=== PATIENT | female | born 1970 | race Caucasian/White ===

== ENCOUNTER → 2020-10-10 | Day surgery (SDC) | payer OTHER ==
[~2020-10-10] MED LIST: ASPIRIN; BASAGLAR K100 UNIT/1 SC; BIAXIN500 MG PO; ELAVIL25 MG PO; GABAPENTIN600 MG PO; GLYBURIDE-METF1 EACH PO; LEVAQUIN750 MG PO; LISINOPRIL10 MG PO; LYRICA 50MG CAP50 MG PO; METFORMIN HCL500 MG PO; METOPROLOL SUCC50 MG PO; METRONIDAZOLE500 MG PO; NORCO 5-325 TA1 EACH PO; OMEPRAZOLE 20MG20 MG PO; PREGABALIN150 MG PO; SIMVASTATIN40 MG PO; VITAMIN D 3 PO; VITAMIN D325 MC1 PO
[2020-10-10 07:11] LABS: HCG (URINE) SCREEN NEGATIVE (NEGATIVE)
[2020-10-10 07:28] LABS: HCT 47.6 % (37.0-47.0); HGB 15.5 g/dl (12.5-16.0); MCH 28.5 pg (25.0-31.0); MCHC 32.6 g/dL (32.0-36.0); MCV 87.5 fL (78.0-100.0); MPV 10.9 fL (6.0-9.5); RBC 5.44 M/uL (4.20-5.40); RDW 13.5 % (11.5-14.0); WBC 7.4 K/uL (4.0-10.5)
[2020-10-10 08:16] LABS: ALBUMIN 3.3 g/dL (3.4-5.0); BILIRUBIN - TOTAL 0.4 mg/dL (0.2-1.0); BUN/CREAT RATIO (CALC) 17.6 RATIO; CREATININE 0.51 mg/dL (0.51-0.95); GLOBULIN (CALCULATION) 3.6 g/dL; POTASSIUM 3.8 mmol/L (3.5-5.1); TOTAL PROTEIN 6.9 g/dL (6.4-8.2)
== END | disposition home or self-care (01) ==
LOC: FAS 06:47
PROVIDERS: Anesthesiology; Surgery
DX: K59.09 Other constipation (principal); K21.9 Gastro-esophageal reflux disease without esophagitis; J30.9 Allergic rhinitis, unspecified; M54.5 Low back pain; E11.42 Type 2 diabetes mellitus with diabetic polyneuropathy; E78.00 Pure hypercholesterolemia, unspecified; I10 Essential (primary) hypertension; E66.9 Obesity, unspecified; E78.5 Hyperlipidemia, unspecified; E55.9 Vitamin D deficiency, unspecified; F17.210 Nicotine dependence, cigarettes, uncomplicated; Z68.33 Body mass index [BMI] 33.0-33.9, adult; Z79.84 Long term (current) use of oral hypoglycemic drugs; Z79.899 Other long term (current) drug therapy; Z88.0 Allergy status to penicillin
CPT/HCPCS: 36415; 80053; 82962; 84703; J1610; J2704; J7120

== ENCOUNTER 2020-12-01 19:36 | Day surgery (SDCO) | payer OTHER ==
[~2020-12-01 19:36] MED LIST changes: -BIAXIN500 MG PO; -LEVAQUIN750 MG PO; -LISINOPRIL10 MG PO; -LYRICA 50MG CAP50 MG PO; -METFORMIN HCL500 MG PO; -METRONIDAZOLE500 MG PO; -NORCO 5-325 TA1 EACH PO; -VITAMIN D 3 PO
[2020-12-01 20:13] LABS: BASOPHIL 0.5 % (0-2); EOSINOPHIL 1.8 % (0-5); HCT 50.5 % (37.0-47.0); HGB 16.9 g/dl (12.5-16.0); LYMPHOCYTE 36.9 % (15-48); MCHC 33.5 g/dL (32.0-36.0); MCV 86.6 fL (78.0-100.0); MONOCYTE 6.6 % (0-12); NEUTROPHIL 53.9 % (41-80); NRBC 0; PLT 220 K/uL (150-400); RBC 5.83 M/uL (4.20-5.40); RDW 13.4 % (11.5-14.0); WBC 11.9 K/uL (4.0-10.5)
[2020-12-01 20:16] LABS: BILIRUBIN NEGATIVE (NEGATIVE); BLOOD TRACE-INTACT Ery/uL (NEGATIVE); CLARITY CLEAR (CLEAR); COLOR YELLOW (YELLOW); GLUCOSE (U) 3+ mg/dL (NORMAL); LEUKOCYTES NEGATIVE Leu/uL (NEGATIVE); NITRITE NEGATIVE (NEGATIVE); PROTEIN NEGATIVE (NEGATIVE); SPECIFIC GRAVITY 1.015 (1.001-1.030); UROBILINOGEN 0.2 mg/dL (0.2-1.0)
[2020-12-01 20:24] LABS: ALBUMIN 3.7 g/dL (3.4-5.0); BACTERIA TRACE; BILIRUBIN - TOTAL 0.3 mg/dL (0.2-1.0); BUN/CREAT RATIO (CALC) 14.7 RATIO; CREATININE 0.68 mg/dL (0.51-0.95); GLOBULIN (CALCULATION) 4.4 g/dL; POTASSIUM 4.4 mmol/L (3.5-5.1); TOTAL PROTEIN 8.1 g/dL (6.4-8.2)
[2020-12-01] MEDS ORDERED: VITAMIN D 3 PO (23:02)
[2020-12-01] MEDS ORDERED: METFORMIN HCL500 MG PO (23:03)
[2020-12-02 05:48] LABS: BASOPHIL 0.5 % (0-2); EOSINOPHIL 2.6 % (0-5); HCT 43.6 % (37.0-47.0); HGB 14.7 g/dl (12.5-16.0); MCH 29.2 pg (25.0-31.0); MCHC 33.7 g/dL (32.0-36.0); MCV 86.5 fL (78.0-100.0); MONOCYTE 7.6 % (0-12); MPV 10.7 fL (6.0-9.5); NEUTROPHIL 53.2 % (41-80); NRBC 0; PLT 172 K/uL (150-400); RBC 5.04 M/uL (4.20-5.40); RDW 13.6 % (11.5-14.0); WBC 8.2 K/uL (4.0-10.5)
[2020-12-02 06:14] LABS: ALBUMIN 2.9 g/dL (3.4-5.0); BILIRUBIN - TOTAL 0.2 mg/dL (0.2-1.0); BUN/CREAT RATIO (CALC) 16.7 RATIO; CREATININE 0.48 mg/dL (0.51-0.95); GLOBULIN (CALCULATION) 3.8 g/dL; MAGNESIUM 2.1 mg/dL (1.8-2.4); POTASSIUM 3.9 mmol/L (3.5-5.1); TOTAL PROTEIN 6.7 g/dL (6.4-8.2)
--- NOTE | 2020-12-02 09:52 | NUR ---
PT. IS OBS. PLEASE CONSIDER A FULL ADMIT OR D/C. THANKS
[2020-12-02 19:46] LABS: URINE CREATININE 26.22 mg/dL (29.00-226.00)
[2020-12-03 05:33] LABS: BASOPHIL 0.7 % (0-2); EOSINOPHIL 2.9 % (0-5); HCT 43.9 % (37.0-47.0); HGB 14.3 g/dl (12.5-16.0); LYMPHOCYTE 39.3 % (15-48); MCH 28.7 pg (25.0-31.0); MCHC 32.6 g/dL (32.0-36.0); MPV 10.8 fL (6.0-9.5); NEUTROPHIL 48.7 % (41-80); NRBC 0; PLT 151 K/uL (150-400); RBC 4.99 M/uL (4.20-5.40); RDW 13.4 % (11.5-14.0); WBC 5.5 K/uL (4.0-10.5)
[2020-12-03 05:41] LABS: INR 1.07 (0.9-1.2); PROTHROMBIN TIME 13.2 SECONDS (11.4-13.6)
[2020-12-03 05:49] LABS: ALBUMIN 2.9 g/dL (3.4-5.0); BILIRUBIN - TOTAL 0.3 mg/dL (0.2-1.0); BUN/CREAT RATIO (CALC) 13.2 RATIO; CREATININE 0.53 mg/dL (0.51-0.95); GLOBULIN (CALCULATION) 3.6 g/dL; MAGNESIUM 2.1 mg/dL (1.8-2.4); POTASSIUM 3.9 mmol/L (3.5-5.1); TOTAL PROTEIN 6.5 g/dL (6.4-8.2)
== END 2020-12-03 12:42 | disposition home or self-care (01) ==
LOC: FER 19:36 → FMS 21:40
PROVIDERS: Emergency Medicine; Nurse Practitioner; ADMIT Internal Medicine
DX: K85.90 Acute pancreatitis without necrosis or infection, unspecified (principal); E11.40 Type 2 diabetes mellitus with diabetic neuropathy, unspecified; R93.89 Abnormal findings on diagnostic imaging of other specified body structures; E78.5 Hyperlipidemia, unspecified; F17.210 Nicotine dependence, cigarettes, uncomplicated; I10 Essential (primary) hypertension; Z79.4 Long term (current) use of insulin; Z79.82 Long term (current) use of aspirin; Z79.899 Other long term (current) drug therapy; Z88.0 Allergy status to penicillin; Z20.822 Contact with and (suspected) exposure to COVID-19
CPT/HCPCS: 36415; 80053; 80061; 81001; 82150; 82570; 83036; 83690; 83735; 84300; 85025; 85610; 94760; 94762; C9113; G0378; J2270; J2405; J7030; Q9967; U0002

== ENCOUNTER 2021-01-11 08:00 | Day surgery (SDCO) | payer OTHER ==
[~2021-01-11 08:00] MED LIST changes: +METFORMIN HCL500 MG PO; +VITAMIN D 3 PO
[2021-01-11 09:28] LABS: BASOPHIL 0.7 % (0-2); EOSINOPHIL 1.3 % (0-5); HCT 44.2 % (37.0-47.0); HGB 14.6 g/dl (12.5-16.0); LYMPHOCYTE 30.6 % (15-48); MCV 87.7 fL (78.0-100.0); MONOCYTE 5.9 % (0-12); MPV 10.9 fL (6.0-9.5); NEUTROPHIL 61.1 % (41-80); NRBC 0; PLT 168 K/uL (150-400); RBC 5.04 M/uL (4.20-5.40); RDW 13.8 % (11.5-14.0); WBC 8.3 K/uL (4.0-10.5)
[2021-01-11 09:50] LABS: ALBUMIN 3.3 g/dL (3.4-5.0); BILIRUBIN - TOTAL 0.4 mg/dL (0.2-1.0); BUN/CREAT RATIO (CALC) 11.8 RATIO; CREATININE 0.51 mg/dL (0.51-0.95); GLOBULIN (CALCULATION) 3.8 g/dL; POTASSIUM 4.1 mmol/L (3.5-5.1); TOTAL PROTEIN 7.1 g/dL (6.4-8.2)
[2021-01-11 10:02] LABS: BILIRUBIN NEGATIVE (NEGATIVE); BLOOD NEGATIVE Ery/uL (NEGATIVE); CLARITY CLEAR (CLEAR); COLOR YELLOW (YELLOW); GLUCOSE (U) NORMAL (NORMAL); LEUKOCYTES TRACE Leu/uL (NEGATIVE); NITRITE NEGATIVE (NEGATIVE); PROTEIN NEGATIVE (NEGATIVE); SPECIFIC GRAVITY 1.015 (1.001-1.030); UROBILINOGEN 0.2 mg/dL (0.2-1.0)
[2021-01-11 10:21] LABS: BACTERIA 2+
[2021-01-11 15:25] LABS: CORONAVIRUS 2019 SARS-COV-2 NEGATIVE (NEGATIVE); INFLUENZA A NAA NEGATIVE (NEGATIVE)
[2021-01-11] MEDS ORDERED: LISINOPRIL10 MG PO (17:02)
[2021-01-11] MEDS ORDERED: LYRICA 50MG CAP50 MG PO ×2 (17:04→17:08)
[2021-01-11] MEDS ORDERED: BASAGLAR K100 UNIT/1 SC ×2 (17:06→17:07)
[2021-01-12 06:36] LABS: BASOPHIL 0.5 % (0-2); EOSINOPHIL 1.9 % (0-5); HCT 40.1 % (37.0-47.0); HGB 12.9 g/dl (12.5-16.0); LYMPHOCYTE 37.1 % (15-48); MCH 29.1 pg (25.0-31.0); MCHC 32.2 g/dL (32.0-36.0); MCV 90.5 fL (78.0-100.0); MONOCYTE 8.8 % (0-12); MPV 10.8 fL (6.0-9.5); NEUTROPHIL 51.5 % (41-80); NRBC 0; PLT 147 K/uL (150-400); RBC 4.43 M/uL (4.20-5.40); RDW 13.7 % (11.5-14.0); WBC 5.8 K/uL (4.0-10.5)
[2021-01-12 07:04] LABS: ALBUMIN 2.7 g/dL (3.4-5.0); BILIRUBIN - TOTAL 0.3 mg/dL (0.2-1.0); CREATININE 0.6 mg/dL (0.51-0.95); GLOBULIN (CALCULATION) 3.7 g/dL; POTASSIUM 4.4 mmol/L (3.5-5.1); TOTAL PROTEIN 6.4 g/dL (6.4-8.2)
[2021-01-12] MEDS ORDERED: NORCO 5-325 TA1 EACH PO (09:50)
[2021-01-12] MEDS ORDERED: LEVAQUIN750 MG PO (10:03)
[2021-01-12] MEDS ORDERED: METRONIDAZOLE500 MG PO (10:03)
[2021-01-12] MEDS ORDERED: BIAXIN500 MG PO (10:03)
== END 2021-01-12 11:03 | disposition home or self-care (01) ==
LOC: FER 08:00 → FMS 14:06
PROVIDERS: Emergency Medicine; ADMIT Internal Medicine
DX: K85.90 Acute pancreatitis without necrosis or infection, unspecified (principal); A04.8 Other specified bacterial intestinal infections; B96.81 Helicobacter pylori [H. pylori] as the cause of diseases classified elsewhere; E11.9 Type 2 diabetes mellitus without complications; E78.5 Hyperlipidemia, unspecified; G62.9 Polyneuropathy, unspecified; E55.9 Vitamin D deficiency, unspecified; I10 Essential (primary) hypertension; F17.210 Nicotine dependence, cigarettes, uncomplicated; Z79.4 Long term (current) use of insulin; Z79.82 Long term (current) use of aspirin; Z79.899 Other long term (current) drug therapy; Z88.0 Allergy status to penicillin; Z20.822 Contact with and (suspected) exposure to COVID-19
CPT/HCPCS: 36415; 80053; 80061; 81001; 82962; 83036; 83690; 85025; 87076; 87088; 87186; 87339; G0378; J1650; J1956; J2405; J7030; Q9967; U0002

== ENCOUNTER 2021-02-01 18:16 | Emergency (ER) | payer OTHER ==
[~2021-02-01 18:16] MED LIST changes: +BIAXIN500 MG PO; +LEVAQUIN750 MG PO; +LISINOPRIL10 MG PO; +LYRICA 50MG CAP50 MG PO; +METRONIDAZOLE500 MG PO; +NORCO 5-325 TA1 EACH PO
[2021-02-01 19:25] LABS: BASOPHIL 0.4 % (0-2); EOSINOPHIL 1.8 % (0-5); HCT 47.8 % (37.0-47.0); HGB 15.9 g/dl (12.5-16.0); LYMPHOCYTE 31.2 % (15-48); MCHC 33.3 g/dL (32.0-36.0); MCV 87.1 fL (78.0-100.0); MPV 10.8 fL (6.0-9.5); NEUTROPHIL 59.3 % (41-80); NRBC 0; PLT 201 K/uL (150-400); RBC 5.49 M/uL (4.20-5.40); RDW 13.8 % (11.5-14.0); WBC 11.9 K/uL (4.0-10.5)
[2021-02-01 19:41] LABS: ALBUMIN 3.8 g/dL (3.4-5.0); BILIRUBIN - TOTAL 0.3 mg/dL (0.2-1.0); BUN/CREAT RATIO (CALC) 17.5 RATIO; CREATININE 0.57 mg/dL (0.51-0.95); GLOBULIN (CALCULATION) 4.2 g/dL; POTASSIUM 4.3 mmol/L (3.5-5.1)
== END 2021-02-01 22:25 | disposition left against medical advice (07) ==
LOC: FER 18:16
PROVIDERS: Internal Medicine
DX: R10.9 Unspecified abdominal pain (principal); Z53.8 Procedure and treatment not carried out for other reasons
CPT/HCPCS: 36415; 80053; 82150; 83690; 85025

== ENCOUNTER 2022-03-26 10:28 | Emergency (ER) | payer OTHER | END 2022-03-26 11:10 | disposition home or self-care (01) | LOC: FER 10:28 | DX: D17.24 Benign lipomatous neoplasm of skin and subcutaneous tissue of left leg (principal); E11.9 Type 2 diabetes mellitus without complications; F17.200 Nicotine dependence, unspecified, uncomplicated; Z88.0 Allergy status to penicillin | CPT/HCPCS: 99283 ==